=== PATIENT | male | born 1980 | race African-American/Black ===

== ENCOUNTER 2018-01-05 00:39 | Emergency (ER) | payer OTHER ==
[2018-01-05] MEDS ORDERED: LIDOCAINE VISCOUS 2% 15 ML UDC MM STA (00:50)
[2018-01-05] MEDS ORDERED: MAG HYDROX/AL HYDROX/SIMETH 30 ML UDC PO STA (00:50)
[2018-01-05] MEDS ORDERED: FAMOTIDINE 20 MG TABLET PO STA (00:50)
--- NOTE | 2018-01-05 00:51 | ED Physician Documentation ---
PD HPI CHEST PAIN - Stated complaint Stated Complaint: CHEST PX - Chief complaint Chief Complaint: Cardiac - History obtained from History obtained from: Patient - History of Present Illness Timing - onset: How many days ago (4) Timing - onset during: Rest Timing - details: Intermittant, Waxing and waning Quality: Sharp, Indigestion Location: Substernal, Right chest Radiation: Right upper extremity Associated symptoms: Feeling faint / dizzy. No: Shortness of air, Diaphoresis, Nausea, Vomiting Similar symptoms before: Has not had sx before Recently seen: Not recently seen - Additional information Additional information: Patient is a 37 year old male with no significnant past medical history who is presenting to the emergency department for chest pain. Patient states that it has been going on and off for the last four days. Patient states it is burning in nature. It is in the epigastric region and denies aggravating or alleviating factors. Patient denies any exertional component or dietary correlation. Patient denies any recent surgery or history of clots. Review of Systems Constitutional: denies: Fever, Chills Eyes: reports: Reviewed and negative Ears: reports: Reviewed and negative Nose: reports: Reviewed and negative Throat: reports: Reviewed and negative Cardiac: reports: Chest pain / pressure. denies: Palpitations, Pedal edema, Calf pain Respiratory: denies: Dyspnea, Cough, Wheezing GI: denies: Abdominal Pain, Nausea, Vomiting : reports: Reviewed and negative Skin: denies: Rash, Lesions Musculoskeletal: reports: Extremity pain. denies: Neck pain, Back pain Neurologic: denies: Generalized weakness, Focal weakness, Near syncope, Syncope , Headache PD PAST MEDICAL HISTORY - Past Medical History Past Medical History: No - Past Surgical History Past Surgical History: Yes General: Appendectomy - Social History Does the pt smoke?: Yes Smoking Status: Current every day smoker Does the pt drink ETOH?: Yes Does the pt have substance abuse?: No - Immunizations Immunizations are current?: Yes - POLST Patient has POLST: No PD ED PE NORMAL - General General: Alert and oriented X 3 - HEENT HEENT: Atraumatic - Neck Neck: No JVD - Cardiac Cardiac: RRR, No murmur - Respiratory Respiratory: No respiratory distress - Abdomen Abdomen: Soft, Non tender, Non distended - Derm Derm: Normal color, Warm and dry, No rash - Extremities Extremities: No deformity - Neuro Neuro: Alert and oriented X 3, Normal speech Eye Opening: Spontaneous - Psych Psych: Normal mood PD ED PE EXPANDED - General General: Alert, Anxious Results - Vitals Vitals: Vital Signs - 24 hr 01/05/18 01/05/18 01/05/18 00:42 01:16 02:03 Temperature 36.4 C L 36.6 C Heart Rate 104 H 86 85 Respiratory 19 18 16 Rate Blood Pressure 155/90 H 140/91 H 148/82 H O2 Saturation 100 98 98 Oxygen O2 Source Room air - EKG (time done) 0043 Rate: Rate (enter#) (100) Rhythm: Sinus tachycardia [place]: Normal Intervals: Normal [place] QRS: Normal Ischemia: Normal ST segments Compare to prior EKG: Old EKG unavailable - Labs Labs: Laboratory Tests 01/05/18 01/05/18 01/05/18 00:56 00:56 00:56 WBC 11.6 H RBC 4.85 Hgb 14.3 Hct 41.3 L MCV 85.2 MCH 29.4 MCHC 34.5 RDW 14.0 Plt Count 267 MPV 7.6 Neut # 7.1 H Lymph # 3.4 Vil[place] # 0.9 Eos # 0.1 Baso # 0.1 Absolute Nucleated RBC 0.01 Nucleated RBC % 0.1 Sodium 138 Potassium 3.6 Chloride 101 Carbon Dioxide 27 Anion Gap 10.0 BUN 6 Creatinine 0.9 Estimated GFR (MDRD) 115 Glucose 96 Calcium 9.5 Total Bilirubin 1.0 AST 36 ALT 38 Alkaline Phosphatase 79 Troponin I < 0.04 B-Natriuretic Peptide Total Protein 8.2 Albumin 4.9 Globulin 3.3 Albumin/Globulin Ratio 1.5 Lipase 18 L 01/05/18 00:56 WBC RBC Hgb Hct MCV MCH MCHC RDW Plt Count MPV Neut # Lymph # [place] # Eos # Baso # Absolute Nucleated RBC Nucleated RBC % Sodium Potassium Chloride Carbon Dioxide Anion Gap BUN Creatinine Estimated GFR (MDRD) Glucose Calcium Total Bilirubin AST ALT Alkaline Phosphatase Troponin I B-Natriuretic Peptide 15 Total Protein Albumin Globulin Albumin/Globulin Ratio Lipase - Rads (name of study) chest x-ray Radiology: Final report received (normal) PD MEDICAL DECISION MAKING - ED course Complexity details: reviewed old records, reviewed results, re-evaluated patient , considered differential, d/w patient ED course: Patient was seen and examined at bedside. ekg was performed and was within normal limits. patient was treated with pepcid, maalox and viscous lidocaine. Patient's chest x-ray and diagnostics including troponin were within normal limits. Patient had a heart score of 1. Patient required no further work up and was stable for discharge with outpatient follow up. Departure - Departure Disposition: 01 Home, Self Care Clinical Impression: Atypical chest pain Condition: Good Instructions: ED Chest Pain NonCardiac Follow-Up: primary,care provider [Other] - Within 1 week Comments: Your diagnostics today were within normal limits. There is no sign of cardiac or pulmonary disease. You pain is more likely secondary to gastritis. you should refrain from using nsaids (ibuprofen, motrin, advil, naproxen etc). You should switch to tylenol for the time being. You can take maalox if the pain returns. You should avoid spicey, and acidic foods as well as alcohol. You can try eating smaller meals and don't eat right before lying down. You should follow up with your doctor if your symptoms persist. you may return to the emergency department at any time for new, worsening or uncontrollable symptoms. Discharge Date/Time: 01/05/18 02:04
[2018-01-05 01:05] LABS: BASOPHILS # (AUTO) 0.1 10^3/uL (0.0-0.1); BASOPHILS % (AUTO) 0.9 %; EOSINOPHILS # (AUTO) 0.1 10^3/uL (0.0-0.7); EOSINOPHILS % (AUTO) 0.7 %; HGB - HEMOGLOBIN 14.3 g/dL (14.0-18.0); LYMPHOCYTES # (AUTO) 3.4 10^3/uL (1.5-3.5); LYMPHOCYTES % (AUTO) 29.5 %; MEAN CORPUSCULAR HEMOGLOBIN 29.4 pg (27.0-31.0); MEAN CORPUSCULAR HGB CONC 34.5 g/dL (32.0-36.0); MEAN CORPUSCULAR VOLUME 85.2 fL (80.0-94.0); MEAN PLATELET VOLUME 7.6 fL (7.4-11.4); MONOCYTES # (AUTO) 0.9 10^3/uL (0.0-1.0); MONOCYTES % (AUTO) 7.6 %; NEUTROPHILS # (AUTO) 7.1 10^3/uL (1.5-6.6); NEUTROPHILS % (AUTO) 61.3 %; PLT - PLATELET COUNT 267 10^3/uL (130-450); RED BLOOD COUNT 4.85 10^6/uL (4.70-6.10); WHITE BLOOD COUNT 11.6 x10^3/uL (4.8-10.8)
[2018-01-05 01:18] LABS: ALBUMIN 4.9 g/dL (3.2-5.5); ALBUMIN/GLOBULIN RATIO 1.5 (1.0-2.2); CALCIUM 9.5 mg/dL (8.5-10.3); CREATININE 0.9 mg/dL (0.6-1.2); TOTAL PROTEIN 8.2 g/dL (6.7-8.2)
--- NOTE | 2018-01-05 01:36 | XRAY Report ---
EXAM: CHEST RADIOGRAPHY EXAM DATE: 01/05/2018 01:17 AM. CLINICAL HISTORY: Chest pain. COMPARISON: 09/08/2009. TECHNIQUE: 2 views. FINDINGS: Lungs/Pleura: No focal opacities evident. No pleural effusion. No pneumothorax. Normal volumes. Mediastinum: Heart and mediastinal contours are unremarkable. Other: None. IMPRESSION: Stable negative 2-view chest radiography. [facility] Referring Provider Line: [phone] SITE ID: [id number]
[2018-01-05 02:04] VITALS: BP 148/82
== END 2018-01-05 02:04 | disposition home or self-care (01) ==
LOC: ED 00:39
DX: R07.89 Other chest pain (principal); F17.200 Nicotine dependence, unspecified, uncomplicated
CPT/HCPCS: 36415; 71046; 80053; 83690; 83880; 84484; 85025; 93005; 99284; 99285; A9270

== ENCOUNTER 2021-08-04 09:15 | Outpatient (CLI) | payer OTHER ==
[2021-08-04 10:16] VITALS: BP 121/83
--- NOTE | 2021-08-04 10:16 | SLEEP CARE CONSULTATION ---
Information from patient questionnaire entered by Laura Pena MA. I have reviewed and concur with the information entered by Laura Pena MA. This document represents the service I personally performed and the decisions made by me, Binta Schrader ARNP. History of Present Illness Service Date and Time: 08/04/2021 0915 Reason for Visit: New patient Chief Complaint: reports: Unrefreshed sleep, Snoring, Excessive daytime sleepiness Date of Onset: 3 years Usual bedtime: 1000 pm Time it takes to fall asleep: 1 1/2 hours Snores at night: Yes Observed to quit breathing while asleep: No Sleeps alone due to snoring: Yes Number of times waking at night: 2 times, at least once Reasons for waking at night: reports: Gasping for air, Bathroom Toss, Turn, or Twitch while sleeping: Yes Recalls having dreams: No Usually gets out of bed at: 0530; weekends is same Feels refreshed in the morning: No Morning headache: No Sleepy or fatigued during the day: Yes Ever fallen asleep while driving: Yes (drowsy driving, no accidents) Takes day naps: No Dreams during day naps: No Prior sleep studies: No Additional HPI information: I had the pleasure of seeing CHENG CALIXTO today regarding the possibility of him having a sleep disorder. His current complaints are excessive daytime sleepiness, snoring and unrefreshed sleep. He states that his snoring has become more "heavy" in the last few years. He had shoulder surgery and he felt that the oxygen mask helped him to sleep better. He always sleeps with a fan blowing on his face. His has told him about snoring too loud and will have him sleep on the couch. She has not told him that she has seen him stop breathing at night. He has fallen asleep during the day unintentionally when at work and is tired all the time. Coworkers who have sleep apnea have encouraged him to get tested. 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 Patient is and lives in [place]. Have you smoked in the past 12 months: Yes Cigarettes per day (20/pack): 8 Years of smokin Smoking Pack Years: 6.0 Alcohol use: Yes Alcohol amount and frequency: 2 per night Caffeine use: Yes Caffeine amount and frequency: 3 per day Family History Family history of sleep disordered breathing: Yes Family Hx Sleep Apnea: Mother: Snoring, Father: Snoring Allergies and Home Medications Drug allergies reviewed: Yes (NKDA) Home medication list reviewed: Yes Allergy and home medication list: Tylenol, prn Angie, prn Motrin, prn Review of Systems Weight gain over past 5 years: 15 Cardiovascular: reports: palpitations (occasional, speeds up or skip a beat - at rest). denies: high blood pressure Gastrointestinal: reports: heartburn Neurological: reports: gait or balance problems. denies: headaches Psychiatric: denies: anxiety, depression Ear/Nose/Throat: reports: wisdom teeth removed. denies: tonsillectomy Endocrine: reports: sluggishness Musculoskeletal: reports: joint pain, back pain Immunologic: reports: allergies to food or environment (seasonal) Physical Exam Vital signs obtained and entered by: Marianne MARS Blood Pressure: 121/83 (left) Cuff size: wrist Heart Rate: 64 O2 Saturation: 98 (with Mask) Height: 5 ft 6 in Weight: 180 lb (with boots) Body Mass Index: 29.0 BMI Classification: Overweight Neck circumference: 16.5 (inches) Mouth and throat: narrow oropharynx Soft palate: long Hard palate: normal Uvula: normal Uvula visualization: 50% Mallampati Class II Tongue: enlarged in size with teeth ferrell on lateral edges Tonsils: 1+ Neck: normal w/o lymphadenopathy or thyromegaly Heart: regular rate and rhythm Lungs: clear bilaterally Impression and Plan 1. Suspected Obstructive Sleep Apnea-Hypopnea Syndrome, as suggested by a history of loud and irregular snoring, gasping or choking in sleep, unrefreshed sleep, cognitive impairment, and excessive daytime sleepiness. Narrow oropharynx and obesity are common predisposing factors for obstructive sleep apnea-hypopnea syndrome. I recommend proceeding to polysomnography to confirm the diagnosis and to assess severity. If the patient has significant sleep disordered breathing, a manual CPAP titration study will also be performed to find the optimal treatment pressure. I informed the patient of what the sleep studies involve and after some discussion, obtained agreement to proceed. The pathophysiology of obstructive sleep apnea-hypopnea syndrome was discussed with the patient and health risks of cardiovascular and cerebrovascular disease if not treated. [facility] brochure for obstructive sleep apnea-hypopnea syndrome given and reviewed. 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 Patient agreed to plan. * Schedule polysomnography +- manual CPAP titration study and return in 1-2 weeks after the study to discuss result and initiate therapy. * Avoid long distance driving or driving when feeling sleepy. * Avoid alcohol, sedative and muscle relaxant around bedtime. * Attempt to lose weight. * Review instructions provided by trained office staff on how to prepare for the sleep study. * Return for follow-up after sleep study completed. Counseling Topics: Weight loss health impact Visit Type: In Office Time Spent with Patient (minutes): 30 Provider Statement: I spent 100% of the Face to Face Visit with the patient with greater than 50% spent counseling the patient and coordination of care.
== END 2021-08-04 09:16 | disposition home or self-care (01) ==
LOC: SC 09:15
PROVIDERS: ATTEND Nurse Practitioner Family
DX: R06.83 Snoring (principal); G47.8 Other sleep disorders; R41.89 Other symptoms and signs involving cognitive functions and awareness; G47.10 Hypersomnia, unspecified
CPT/HCPCS: 99203; 99212

== ENCOUNTER 2021-08-18 13:44 | Outpatient (CLI) | payer OTHER | END 2021-08-18 13:45 | disposition home or self-care (01) | LOC: SC 13:44 | PROVIDERS: ATTEND Nurse Practitioner Family | DX: R06.83 Snoring (principal); G47.8 Other sleep disorders; G47.10 Hypersomnia, unspecified; F17.210 Nicotine dependence, cigarettes, uncomplicated | CPT/HCPCS: 95806 ==

== ENCOUNTER 2021-10-20 16:00 | Outpatient (CLI) | payer OTHER ==
[2021-10-20 16:41] VITALS: BP 132/99
--- NOTE | 2021-10-20 16:41 | SLEEP CARE CONSULTATION ---
Information from patient questionnaire entered by Laura Pena MA. I have reviewed and concur with the information entered by Laura Pena MA. This document represents the service I personally performed and the decisions made by Macrina ventura Caren J, ARNP. History of Present Illness Service Date and Time: 10/20/2021 1600 Initial [place] Sleepiness Scale score: 9 (2020) Current [place] Sleepiness Scale score: 14 (2021) Additional HPI information: CHENG CALIXTO returns for follow up and results of the recently performed home sleep study. The patient was informed of the following findings: "This is an inconclusive test due to the poor quality. The home sleep apnea test (HSAT) should be repeated or an in-laboratory polysomnography ordered." Sleep Study - Results Prior sleep studies: No Polysomnography/Home Sleep Study results: Physician Impression: The quality of the study is poor due to extensive loss of airflow and occasional loss of pulse oximetry signals. The length of the study is adequate (> 240 minutes). Please also see the tabulated and graphic data. 1. No significant sleep disordered breathing, with an AHI of 2.7/hr and irena SaO2 of 77%. During the study, the patient had 3 apneas (2 obstructive, 0 central, 1 mixed) and 3 hypopneas. The longest episode lasted 31.5 seconds. The few respiratory events occurred almost exclusively during supine sleep (supine AHI was 66.7 and non-supine, 2.26). 2. Hypoxemia (ICD-10 R09.02), moderate, with the lowest oxygen saturation of 77 % and 2.8 minutes with SaO2 under 90%. Baseline oxygen saturation was normal (Average oxygen saturation was 94%). Recommendation: This is an inconclusive test due to the poor quality. The home sleep apnea test (HSAT) should be repeated or an in-laboratory polysomnography ordered Allergies and Home Medications Known drug allergies: No Drug allergies reviewed: Yes Home medication list reviewed: Yes (no changes) Review of Systems Review of systems same as previous: Yes (no changes) Physical Exam Vital signs obtained and entered by: ANTHONY ROMAN Blood Pressure: 132/99 (LEFT, PULSE 112,) Heart Rate: 100 O2 Saturation: 98 (WITH A PAPER MASK) Height: 5 ft 6 in Weight: 180 lb (W/O CLOTHES) Body Mass Index: 29.0 BMI Classification: Overweight Impression and Plan 1. Suspected Obstructive Sleep Apnea-Hypopnea Syndrome, as suggested by a history of loud and irregular snoring, gasping or choking in sleep, unrefreshed sleep, cognitive impairment, and excessive daytime sleepiness. He did a HST but there was significant loss of airflow signal and the study was inconclusive. I advised him that we need to try to repeat the study. I recommend proceeding to polysomnography to confirm the diagnosis and to assess severity. If the patient has significant sleep disordered breathing, a manual CPAP titration study will also be performed to find the optimal treatment pressure. I informed the patient of what the sleep studies involve and after some discussion, obtained agreement to proceed. The pathophysiology of obstructive sleep apnea-hypopnea syndrome was discussed with the patient and health risks of cardiovascular and cerebrovascular disease if not treated. 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 Patient agreed to plan. * Schedule polysomnography * Avoid long distance driving or driving when feeling sleepy. * Avoid alcohol, sedative and muscle relaxant around bedtime. * Attempt to lose weight. * Review instructions provided by trained office staff on how to prepare for the sleep study. * Return for follow-up after sleep study completed. Counseling Topics: Weight loss health impact Visit Type: In Office Time Spent with Patient (minutes): 10 Provider Statement: I spent 100% of the Face to Face Visit with the patient with greater than 50% spent counseling the patient and coordination of care.
== END 2021-10-20 16:01 | disposition home or self-care (01) ==
LOC: SC 16:00
PROVIDERS: ATTEND Nurse Practitioner Family
DX: R06.83 Snoring (principal); G47.8 Other sleep disorders; R41.89 Other symptoms and signs involving cognitive functions and awareness; G47.10 Hypersomnia, unspecified
CPT/HCPCS: 99212

== ENCOUNTER 2021-12-04 19:24 | Outpatient (CLI) | payer OTHER | END 2021-12-04 19:25 | disposition home or self-care (01) | LOC: SC 19:24 | PROVIDERS: ATTEND Nurse Practitioner Family | DX: R06.83 Snoring (principal); G47.8 Other sleep disorders; G47.10 Hypersomnia, unspecified | CPT/HCPCS: 95810 ==